=== PATIENT | male | born 1980 | race Caucasian/White ===

== ENCOUNTER 2016-12-27 12:06 | Emergency (ER) | payer SELFPAY ==
[2016-12-27 12:17] VITALS: BP 133/76; PULSE 72; RESP 16; TEMP 98.2; O2SAT 100
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
== END 2016-12-30 18:34 | disposition home or self-care (01) ==
DX: S01.81XA Laceration without foreign body of other part of head, initial encounter (principal); Z87.891 Personal history of nicotine dependence; W22.8XXA Striking against or struck by other objects, initial encounter